=== PATIENT | female | born 1965 | race African-American/Black ===

== ENCOUNTER 2017-05-28 08:07 | Emergency (ER) | payer MEDICARE, OTHER ==
[~2017-05-28] VITALS: Ht 177.8 cm; Wt 105.0 kg
[2017-05-28] MEDS ORDERED: AMOXICILLIN/POTASSIUM CLAVULANATE 875/125MG TAB PO ONE (10:00)
[2017-05-28] MEDS ORDERED: TETANUS, DIPHTHERIA, PERTUSSIS VAC/PF 0.5ML (>7YR OLD) IM ONE (10:45)
[2017-05-28 10:59] VITALS: BP 152/71
== END 2017-05-28 11:01 | disposition home or self-care (01) ==
LOC: ER 09:50
DX: S80.819A Abrasion, unspecified lower leg, initial encounter (principal); W55.03XA Scratched by cat, initial encounter; F17.210 Nicotine dependence, cigarettes, uncomplicated; F12.10 Cannabis abuse, uncomplicated; J45.909 Unspecified asthma, uncomplicated; Y93.89 Activity, other specified; Y92.89 Other specified places as the place of occurrence of the external cause; Z90.710 Acquired absence of both cervix and uterus
CPT/HCPCS: 90471; 90715; 99283